=== PATIENT | female | born 1950 | race Caucasian/White ===

== ENCOUNTER 2019-04-11 15:22 | Emergency (ER) | payer OTHER, MEDICARE ==
[2019-04-11 15:34] VITALS: BP 180/90; PULSE 81; TEMP 98.5; BMI 27.4
--- NOTE | 2019-04-11 15:55 | PDOC ---
History of Present Illness - General Chief Complaint: Injury Stated Complaint: LF SHOULDER INJURY Time Seen by Provider: 04/11/19 15:32 - History of Present Illness Initial Comments: 04/11/19 15:52 68-year-old female without comorbidities presents for left shoulder pain after slip and fall at home. 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 she is describes a dislocation event which self reduced prior to her arrival in the emergency room by ambulance no head injury nausea vomiting post injury visual changes only complaints left shoulder pain Past History - Past Medical History Allergies/Adverse Reactions: Allergies Allergy/AdvReac Type Severity Reaction Status Date / Time naproxen Allergy Verified 04/11/19 15:31 Asthma: Yes COPD: No - Immunization History Immunization Up to Date: Yes - Psycho Social/Smoking Cessation Hx Smoking History: Never smoked Hx Alcohol Use: No Drug/Substance Use Hx: No Review of Systems - Review of Systems Musculoskeletal: Yes: Joint Pain *Physical Exam - Vital Signs Last Vital Signs Temp Pulse Resp BP Pulse Ox 98.5 F 81 16 180/90 H 100 04/11/19 15:26 04/11/19 15:26 04/11/19 15:26 04/11/19 15:26 04/11/19 15:26 - Physical Exam 04/11/19 15:53 Left shoulder skin color and temperature normal range of motion is full with discomfort and stiffness at terminal abduction and external rotation and terminal adduction and internal rotation. 3 out of 5 rotator cuff strength testing with supraspinatus isolation. Unable to tolerate stability or impingement maneuvers neurovascular intact upper extremity compartments are soft and nontender elbow wrist and hand are nontender. Normal range of motion of the elbow wrist hand and forearm ED Treatment Course - RADIOLOGY Radiology Studies Ordered: Category Date Time Status SHOULDER-LEFT [RAD] Stat Radiology 04/11/19 15:39 Taken Medical Decision Making - Medical Decision Making 04/11/19 15:53 X-rays of the left shoulder show no evidence of fracture trauma or destructive process she has mild degenerative changes in the acromioclavicular joint. Left shoulder subluxation follow-up with Ortho in [place] where the patient's from discussed use of Tylenol she cannot tolerate anti-inflammatories. Discharge - Discharge Information Problems reviewed: Yes Clinical Impression/Diagnosis: Left shoulder strain Condition: Stable Disposition: HOME - Admission No - Follow up/Referral Referrals: ON STAFF,NOT [Primary Care Provider] - - Patient Discharge Instructions Additional Instructions: Return to the emergency room for worsening symptoms and without fail please follow-up with orthopedic surgery in [place] upon return. Tylenol as discussed for pain. Please use a sling for comfort and begin the exercises to your tolerance as we discussed. - Post Discharge Activity
== END 2019-04-11 16:00 | disposition home or self-care (01) ==
LOC: JERFT 15:22 → JER 15:22 → JERFT 16:00
DX: S46.812A Strain of other muscles, fascia and tendons at shoulder and upper arm level, left arm, initial encounter (principal); W01.0XXA Fall on same level from slipping, tripping and stumbling without subsequent striking against object, initial encounter; Y93.89 Activity, other specified; Y92.010 Kitchen of single-family (private) house as the place of occurrence of the external cause; Y99.8 Other external cause status; Z87.09 Personal history of other diseases of the respiratory system; Z88.5 Allergy status to narcotic agent
CPT/HCPCS: 73030-TC-LT-FY; 99282-25